=== PATIENT | female | born 1960 | race Caucasian/White ===

== ENCOUNTER → 2016-09-10 | Outpatient (CLI) | payer BC ==
[~2016-09-10] MED LIST: LEVO75TA5 PO
== END | disposition home or self-care (01) ==
LOC: C.LAB1850 12:24
PROVIDERS: ATTEND Nurse Practitioner Adult Health
DX: E03.9 Hypothyroidism, unspecified (principal)

== ENCOUNTER → 2016-12-21 | Outpatient (CLI) | payer BC ==
[2016-12-21 14:46] LABS: ALT/SGPT 22 U/L (12-78); BLOOD UREA NITROGEN 11 mg/dl (7-18); BUN/CREATININE RATIO 16.4 (10-20); CALCIUM 9.3 mg/dl (8.5-10.1); CARBON DIOXIDE 29 mmol/L (21-32); CHLORIDE 105 mmol/L (98-107); CHOLESTEROL 187 mg/dl (0-200); CREATININE 0.66 mg/dl (0.60-1.20); GLUCOSE 82 mg/dl (70-99); HDL CHOLESTEROL 99 mg/dl; LDL CHOLESTEROL CALCULATED 79 mg/dl; POTASSIUM 3.8 mmol/L (3.5-5.1); SODIUM 141 mmol/L (136-145); TRIGLYCERIDES 44 mg/dl (0-150)
[2016-12-21 14:47] LABS: CHOLESTEROL/HDL RATIO 1.9; VERY LOW DENSITY LIPOPROT CALC 9 mg/dl
[2016-12-21 14:54] LABS: ALB/GLOB RATIO 1.2 (0.9-2); ALKALINE PHOSPHATASE 87 U/L (45-117); AST/SGOT 22 U/L (15-37)
--- NOTE | 2016-12-24 12:13 | CODING QUERY NO DIAGNOSIS ---
TREATMENT RENDERED WITHOUT A DIAGNOSIS : 1960 To promote full compliance with coding requirements relating to patient care, physician participation is requested in all cases of mixer driver uncertainty. Please assist us with providing a diagnosis/symptom for the test(s) below: A diagnosis/symptom was not documented on your Order. A valid diagnosis/symptom is required to bill all insurances. Please remember that we are unable to code a diagnosis of rule out, probable, possible, questionable, or suspected. Tests that require a diagnosis: DOS: 12/21/16 * COMPREHENSIVE METABO DIAGNOSIS: * LIPID FAST RFLX LDLD DIAGNOSIS: Provider Signature: Date: Thank you Rita [facility] Information Management Once completed, please kindly fax back to [phone] For questions please call [phone]
== END | disposition home or self-care (01) ==
LOC: C.LAB1850 10:35
PROVIDERS: ATTEND Nurse Practitioner Family
DX: Z13.1 Encounter for screening for diabetes mellitus (principal); Z13.220 Encounter for screening for lipoid disorders

== ENCOUNTER 2018-07-14 17:20 | Inpatient (IN) ==
--- OUTSIDE RECORDS SUMMARY | 2018-07-14 17:23 | External Medical Summary | Continuity of Care Document ---
:1960 Author Name Nam Bhat, Provider Address Unavailable Unavailable , Care Team Providers Name Role Phone Cesar Suarez Unavailable [email or web address] [place] Problems Other screening mammogram (V76.12) (Z12.31) Influenza vaccine needed (V04.81) (Z23) Encounter for screening for lipid disorder (V77.91) (Z13.220 ) Encounter for screening for diabetes mellitus (V77.1) (Z13.1 ) Encounter for screening for malignant neoplasm of colon (V76 .51) (Z12.11) Hypothyroidism (244.9) (E03.9) Former smoker (V15.82) (Z87.891) Encounter for routine gynecological exam ination with Papanicolaou smear of cervix (V72.31) (Z01.419) Allergies and Adverse Reactions No Known Drug Allergies (Allergy) Medications Levothyroxine Sodium 112 MCG Oral Tablet; Take 1 table t daily YE Wynne Start: 07-Mar-2018 Quantity: 90 Refills: 1 Procedures History of no history of surgery Status: Completed Immunizations Influenza On: 15-Jan-2014 14:47 Lot #: [id number], [employer] PA[employer]UR Influenza On: 05-Nov-2014 10:36 Lot #: [id number], [employer]FI PA[employer]UR Fluzone Quadrivalent 0.5 ML Intramuscular Suspension On: Nov-2016 9:55 Lot #: [id number], SANOFI PA[employer]UR Flublok Quadrivalent 0.5 ML Intramuscular Solution Pre filled Syringe On: 28-Dec-2017 8:31 Lot #: [id number], SANOFI PASTEUR Family History Mother Family history of Status: Active Family history of lung cancer (V16.1) (Z80.1) Status: Active Family history of thyroid disease (V18.19) (Z83.49) Status: Active Father Family history of Status: Active Family history of myocardial infarction (V17.3) (Z82.49) Sta tus: Active Sister Family history of Tachycardia (785.0) (R00.0) Status: Active Brother FH: celiac disease (V18.59) (Z83.79) Status: Active Social History - Smoking Status Former smoker Plan of Treatment Planned Observations Planned Goals not documented Results No Known Results Results not documented Encounters Appointment; Vivian Matson M.D. 14-Mar-2018 14:00 Encounter Diagnosis: Problem not documented Appointment; Cesar Wynne CRNP 28-Dec-2017 7:40 Encounter Diagnosis: Problem not documented Appointment; Allen Sloan DO 23-Feb-2017 13:40 Encounter Diagnosis: Problem not documented Appointment; Allen Sloan DO 10-Feb-2017 11:20 Encounter Diagnosis: Problem not documented Appointment; Cesar Wynne CRNP 27-Dec-2016 9:20 Encounter Diagnosis: Problem not documented
[2018-07-14] MEDS ORDERED: fentaNYL citrate 100 MCG/2 ML VIAL IV STA (18:23)
--- NOTE | 2018-07-14 18:31 | Emergency Department Note ---
ED Provider Note CHIEF COMPLAINT: Right leg injury HISTORY OF PRESENTING ILLNESS: This is a 58-year-old female who presents to the emergency department by private vehicle with complaint of fall and right leg injury that occurred today around 5 PM. She states that she was walking the dogs and she tripped, she states that she twisted and fell onto her right side. She is complaining of pain in the right thigh and right hip. She states she is unable to move the leg or walk since the injury. She denies any other injuries. She denies hitting her head or loss consciousness. She does not take any blood thinners. She denies any back pain. She denies any chest pain, shortness of breath, or dizziness. She denies any previous injury to this leg. She rates her pain as constant, worse with moving the leg, aching and occasionally sharp, 5/10. She did not take any medication for her pain. REVIEW OF SYSTEMS: A complete 10 point review of systems was reviewed with the patient with pertinent positives and negatives as per history of present illness. All else were negative. PAST MEDICAL HISTORY: Hypothyroidism SOCIAL HISTORY: Lives at home, denies tobacco use ALLERGIES: No known allergies PHYSICAL EXAM: CONSTITUTIONAL: Pleasant and cooperative. No acute distress, but appears uncomfortable from pain. Well appearing and well nourished. HEENT: Normocephalic, atraumatic. PERRL, EOMI. Pharynx normal. NECK: Supple, full active range of motion without discomfort. No midline tenderness of the cervical spine. RESPIRATORY: Clear to auscultation bilaterally with no wheezing, crackles, rhonchi or stridor. Equal expansion bilaterally. CARDIOVASCULAR: Regular rate and rhythm with no murmurs, rubs or gallops. Normal peripheral perfusion. No edema. GASTROINTESTINAL: Soft, nontender, nondistended. No palpable masses or HSM. Bowel sounds present in all quadrants. No CVA tenderness bilaterally. MUSCULOSKELETAL: The right leg is in a position of slight external rotation, but is not shortened. Tenderness to palpation over the right hip joint, pain with range of motion of the right hip. No instability or tenderness with evaluation of the pelvis. Full range of motion of the right knee and right ankle without any pain. INTEGUMENTARY: No rash or other significant dermatologic conditions noted. NEUROLOGIC: Alert and oriented X 4 with normal affect. Sensation intact light touch in all 4 extremities. Normal speech. ED COURSE AND MEDICAL DECISION MAKING: CC: Patient presenting with complaint of right leg injury DIFFERENTIAL DIAGNOSIS: Includes, but not limited to contusion, hematoma, sprain/strain, pelvis fracture, hip fracture, femur fracture, dislocation, among others. INTERPRETATION OF LABS: No leukocytosis, no anemia, normal platelets, no significant electrolyte abnormalities, normal renal function. Coagulation factors within normal limits. IMAGING: XR hip RT 2-3V w pelvis CLINICAL HISTORY: fall, hip pain COMPARISON: None FINDINGS: Note is made of an acute nondisplaced impacted right femoral neck fracture. No additional fractures are identified on this exam. Sacroiliac joints and symphysis pubis are intact. Mild to moderate osteophytosis of both hips, greater on the right. IMPRESSION: Acute impacted nondisplaced right femoral neck fracture. EKG: Shows normal sinus rhythm with a rate of 70 bpm, normal intervals, no ST or T wave abnormalities, no ectopy by my interpretation. No previous EKG a vailable for comparison. MEDICATION RECONCILIATION: I attest that I have personally reviewed the avel villalobos's current medication list. INITIAL VITAL SIGNS REVIEW: I reviewed the patient's initial vital signs and interpret them as follows: T: Afebrile; BP: Hypertensive; HR: Within normal limit; RR: Within normal limits; Pulse Ox: Within normal limits on room air. Blood pressure screening: The patient was found to have an elevated blood pressure, which was felt to be situational. MDM SUMMARY: Patient was evaluated at bedside, history and physical exam performed. Patient is alert and oriented, in no acute distress, but appears uncomfortable from pain. There is tenderness to palpation over the right hip joint and pain with any attempts to move the right leg. Increased pain with range of motion of the right hip. The leg is in a position of external rotation, but does not appear to be shortened. She is neurovascularly intact. Orders were placed at bedside for IV placement, IV fentanyl for pain, x-rays of the pelvis, right hip, and right femur to evaluate for trauma. Patient discussed with Dr. Rock, who agrees with my assessment, plan, and disposition. Imaging reviewed as above, notable for an acute impacted right femoral neck fracture. I spoke on the phone with Dr. Dyson, orthopedic surgery, who plans to admit the patient for probable surgery tomorrow. Basic labs and EKG were ordered per his request. Patient reassessed multiple times throughout ED stay, she has remained hemodynamically stable and her pain is well controlled with IV fentanyl. The patient was updated on all results and plan for admission , she verbalized understanding and was agreeable to this plan. The patient was stable at time of admission. The chart was completed utilizing [employer] Speech voice recognition software. Grammatical errors, random word insertions, pronoun errors, and incomplete sentences are an occasional consequence of this system due to software limitations, ambient noise, and hardware issues. Any formal questions or concerns about the content, text, or information contained within the body of this dictation should be directly addressed to the nurse practitioner for clarification. Impression & Plan Fracture of femur Past Med/Surg History Medical History Hypothyroidism Family History Mother Lung cancer Father ASCVD (arteriosclerotic cardiovascular disease) Social History Preferred Language: Hong Konger Communication Ability: Effective Beliefs That Will Affect Care: None Current Living Situation: Family Other Information That Helps Us Care for You: No Feels Safe at Home: Yes Safety Concerns: Feels Safe At This Time Smoking Status: Former smoker Hx Alcohol Use: No Hx Substance Use: No Results & Data Vital Signs Vital Signs - 24 hr 07/14/18 17:27 07/14/18 20:15 Temperature 36.7 C Temperature Source Oral Sepsis Recent Fever Within 48 Hours No Sepsis Action Taken by Nursing No Action Required Pulse Rate 67 Pulse Rate [Apical] 70 Pulse Rhythm Regular Pulse Strength Normal Respiratory Rate 20 18 Respiratory Effort / Characteristics Non-Labored Spontaneous Respiratory Depth Normal Respiratory Pattern Regular Blood Pressure 146/84 H Blood Pressure [Left Arm] 146/77 H Blood Pressure Mean 104 Blood Pressure Mean [Left Arm] 100 Blood Pressure Position Sitting Pulse Oximetry 96 96 Oxygen Delivery Method Room Air Room Air Laboratory Data Result diagrams: 07/14/18 18:35 07/14/18 21:03 Lab Results 07/14/18 07/14/18 07/14/18 Range/Units 18:35 18:35 18:35 WBC 8.93 (4.8-10.8) K/uL RBC 4.52 (4.2-5.4) M/uL Hgb 13.9 (12.0-16.0) g/dL Hct 39.8 (37-47) % MCV 88.1 (80-100) fL MCH 30.8 (25-34) pg MCHC 34.9 (32-36) g/dL RDW Std Deviation 39.3 (36.4-46.3) fL RDW Coeff of Joe 12.3 (11.5-14.5) % Plt Count 205 (130-400) K/uL MPV 9.1 (7.4-10.4) fL Immature Gran % (Auto) 0.6 % Neut % (Auto) 80.2 % Lymph % (Auto) 10.9 % [place] % (Auto) 6.4 % Eos % (Auto) 1.2 % Baso % (Auto) 0.7 % Immature Gran # (Auto) 0.05 H (0.00-0.02) K/uL Neut # (Auto) 7.17 H (1.4-6.5) K/uL Lymph # (Auto) 0.97 L (1.2-3.4) K/uL [place] # (Auto) 0.57 (0.11-0.59) K/uL Eos # (Auto) 0.11 (0-0.5) K/uL Baso # (Auto) 0.06 (0-0.2) K/uL PT 11.4 (9.0-12.0) Seconds INR 1.1 (0.9-1.1) APTT 26.8 (21.0-31.0) Seconds PTT Ratio 1.0 Sodium 138 (136-145) mmol/L Potassium (3.5-5.1) mmol/L Chloride 105 (98-107) mmol/L Carbon Dioxide 27 (21-32) mmol/L Anion Gap 6.0 (3-11) BUN 10 (7-18) mg/dl Creatinine 0.79 (0.6-1.2) mg/dl Est Cr Clr Drug Dosing 83.3 ml/min Est GFR ( Amer) 95.6 Est GFR (Non-Af Amer) 82.5 BUN/Creatinine Ratio 12.6 (10-20) Glucose 90 (70-99) mg/dl Calcium 9.3 (8.5-10.1) mg/dl Administered Medications Sodium Chloride (Nss 1000ml) 1,000 mls @ 80 mls/hr IV .[id number] [facility] Stop: 08/13/18 23:14 Last Admin: 07/14/18 23:22 Dose: 80 mls/hr Documented by: [id number] Levothyroxine Sodium (Synthroid) 75 mcg PO DAILYBB [facility] Stop: 08/14/18 06:29 Last Admin: 07/15/18 06:38 Dose: 75 mcg Documented by: [id number] Morphine Sulfate (Morphine Sulfate) 4 mg IV Q2H PRN PRN Reason: SEVERE Pain (Scale 7,8,9,10) Stop: 07/28/18 20:26 Last Admin: 07/15/18 08:21 Dose: 4 mg Documented by: [id number] Admin: 07/15/18 05:56 Dose: 4 mg Documented by: [id number] Admin: 07/14/18 22:19 Dose: 4 mg Documented by: [id number] Oxycodone HCl (Roxicodone Immediate Rel) 5 mg PO Q4H PRN PRN Reason: MODERATE Pain (Scale 4,5,6) Stop: 07/28/18 20:26 Last Admin: 07/14/18 22:50 Dose: 5 mg Documented by: [id number] Senna/Docusate Sodium (Senokot S) 2 tab PO HS [facility] Stop: 08/13/18 20:59 Last Admin: 07/14/18 22:46 Dose: 2 tab Documented by: [id number] Discontinued Medications Fentanyl Citrate (Fentanyl Citrate) 50 mcg IV NOW STA Stop: 07/14/18 18:24 Last Admin: 07/14/18 18:37 Dose: 50 mcg Documented by: [id number] Discharge Plan Visit Data *Final* Discharge Date/Time: 07/14/18 21:17 Chief Complaint: Leg Injury/Pain Stated Complaint: FELL ON RT LEG, STIFF/SORE/HARD TO MOVE ED Provider: Shilo Rock ED Midlevel Provider: Kathrin Moscoso Discharge Problem: Fracture of femur Patient Disposition: Admitted As Inpatient Condition: Good Discharge Instructions Interventions: ED Discharge Assessment Last Done: 07/14/18 21:17 Discharge Problem: Fracture of femur Qualifiers: Encounter type: initial encounter Femur location: neck Fracture type: closed Laterality: right Qualified Code(s): S72.001A - Fracture of unspecified part of neck of right femur, initial encounter for closed fracture
--- NOTE | 2018-07-14 19:20 | XRay Report ---
XR femur RT 2V routine CLINICAL HISTORY: fall, hip pain COMPARISON: None FINDINGS: Note is made of an acute impacted nondisplaced right femoral neck fracture. No additional fractures of the right femur are noted. Alignment of the right knee is anatomic. There is no evidence for a right knee joint effusion. IMPRESSION: Acute impacted nondisplaced right femoral neck fracture. Electronically signed by: Umberto Walters M.D. 07/14/2018 7:19 PM
--- NOTE | 2018-07-14 19:20 | XRay Report ---
XR hip RT 2-3V w pelvis CLINICAL HISTORY: fall, hip pain COMPARISON: None FINDINGS: Note is made of an acute nondisplaced impacted right femoral neck fracture. No additional fractures are identified on this exam. Sacroiliac joints and symphysis pubis are intact. Mild to mode rate osteophytosis of both hips, greater on the right. IMPRESSION: Acute impacted nondisplaced right femoral neck fracture. Electronically signed by: Umberto Walters M.D. 07/14/2018 7:19 PM
[2018-07-14 20:07] LABS: Basophils # (auto) 0.06 K/uL (0-0.2); Basophils % (auto) 0.7 %; Eosinophils # (auto) 0.11 K/uL (0-0.5); Eosinophils % (auto) 1.2 %; Hematocrit (blood only) 39.8 % (37-47); Hemoglobin 13.9 g/dL (12.0-16.0); Immature Granulocytes # (auto) 0.05 K/uL (0.00-0.02); Immature Granulocytes % (auto) 0.6 %; Lymphocytes # (auto) 0.97 K/uL (1.2-3.4); Lymphocytes % (auto) 10.9 %; Mean Corpuscular Hgb Conc 34.9 g/dL (32-36); Mean Corpuscular Volume 88.1 fL (80-100); Mean Platelet Volume 9.1 fL (7.4-10.4); Monocytes # (auto) 0.57 K/uL (0.11-0.59); Monocytes % (auto) 6.4 %; Neutrophils # (auto) 7.17 K/uL (1.4-6.5); Neutrophils % (auto) 80.2 %; Platelet Count 205 K/uL (130-400); RDW Coefficient of Variation 12.3 % (11.5-14.5); RDW Standard Deviation 39.3 fL (36.4-46.3); Red Blood Count 4.52 M/uL (4.2-5.4); White Blood Count 8.93 K/uL (4.8-10.8)
[2018-07-14 20:12] LABS: INR 1.1 (0.9-1.1); Partial Thromboplastin Time 26.8 Seconds (21.0-31.0); Prothrombin Time 11.4 Seconds (9.0-12.0)
[2018-07-14 20:22] LABS: BUN Creatinine Ratio 12.6 (10-20); Calcium 9.3 mg/dl (8.5-10.1); Creatinine Clr Calc Pharmacy 83.3 ml/min; Est GFR (African American) 95.6; Est GFR (Non-African American) 82.5
[2018-07-14] MEDS ORDERED: ONDANSETRON INJ 2 MG/ML 2 ML VIAL IV PRN (20:27)
[2018-07-14] MEDS ORDERED: NALOXONE HCL 0.4 MG/1 ML VIAL/CARP IV PRN (20:27)
[2018-07-14] MEDS ORDERED: MAGNESIUM HYDROXIDE SUSP 30 ML UDC PO PRN (20:27)
[2018-07-14] MEDS ORDERED: BISACODYL 10 MG SUPP PR PRN (20:27)
[2018-07-14] MEDS ORDERED: OXYCODONE HCL IR 5 MG TAB (IMMEDIATE RELEASE) PO PRN (20:27)
--- NOTE | 2018-07-14 20:43 | Communication Note ---
Date of Service: July 14, 2018 Will admit to ortho with HEIDEG as consult for impacted femoral neck fracture. Will silvia plan for surgical treatment in the AM.
[2018-07-14 21:39] LABS: Albumin Level 3.9 gm/dl (3.4-5.0); Calcium 9.3 mg/dl (8.5-10.1); Creatinine Clr Calc Pharmacy 95.4 ml/min; Est GFR (African American) 111.2; Potassium 3.6 mmol/L (3.5-5.1)
[2018-07-14 21:42] LABS: Albumin Globulin Ratio 1.1 (0.9-2); Bilirubin,Total 0.6 mg/dl (0.2-1); Globulin 3.7 gm/dl (2.5-4.0); Total Protein 7.6 gm/dl (6.4-8.2)
[2018-07-14] MEDS: MoRPHine SULFATE 4 MG/ML 1 ML CARP\\VIAL IV PRN (22:19)
[2018-07-14] MEDS: DOCUSATE SODIUM/SENNA 50/8.6MG TAB PO SCH (22:46)
[2018-07-14] MEDS: SODIUM CHLORIDE 0.9% 1000ML 1,000 ML IV SCH (23:22)
[2018-07-15] MEDS: MoRPHine SULFATE 4 MG/ML 1 ML CARP\\VIAL IV PRN ×2 (05:56→08:21)
[2018-07-15] MEDS: LEVOTHYROXINE SODIUM 75 MCG TABLET PO SCH (06:38)
--- NOTE | 2018-07-15 07:37 | History & Physical Report ---
Date of Service July 15, 2018 Assessment & Plan (1) Subcapital fracture of right hip: Patient will require cannulated screw fixation of her right hip fracture. Unless the fracture has shifted in someway which would then require likely total hip arthroplasty. Plan for ORIF today versus anterior AGUSTIN if needed. I have indicated the patient for closed reduction internal fixation of her right hip with percutaneous screws versus anterior total hip replacement. The risk benefits complications alternatives were explained to the patient in detail which include however not limited to infection, blood clots, acute blood loss, injury to surrounding nerves, bone, vessels, soft tissue, chronic pain, arthrofibrosis, avascular necrosis, nonunion, malunion, failure of the implants/prosthesis, hip dislocation, leg length discrepancy, need for repeat surgery, loss of limb and loss of life. Patient wished to proceed with surgical intervention and informed consent was obtained. Antibiotics section 8 property manager the OR History of Present Illness Chief Complaint: Right hip pain Primary Care Provider: Cesar Wynne III, YE Patient is a 58-year-old white female who states that while she was walking her dogs yesterday she was turning to go one direction and the dogs leash was wrapped around her legs causing her to lose her balance. She fell into the g rass onto her right side and had immediate pain in her right hip she had difficulty with ambulating. She denies hitting her head and denies loss of consciousness. She has no history of having any shortness of breath chest pain or lightheadedness prior to or after the fall. She came to the emergency room here at [facility] and was seen by the staff. X-rays were taken and was found that she had an impacted subcapital hip fracture of the right hip. Dr Dyson was notified and had the patient admitted for further orthopedic care. Allergies Allergy/AdvReac Type Severity Reaction Status Date / Time No Known Allergies Allergy Verified 07/14/18 18:35 Home Medications Home Medications Medication Instructions Recorded Confirmed Type LEVOTHYROXINE SODIUM 75 mcg PO DAILY #0 07/11/15 07/14/18 History Past Med/Surg History Medical History Hypothyroidism Surgical History S/P tooth extraction Family History Mother Lung cancer Father ASCVD (arteriosclerotic cardiovascular disease) Social History Preferred Language: Armenian Communication Ability: Effective Beliefs That Will Affect Care: None Current Living Situation: Family Other Information That Helps Us Care for You: No Feels Safe at Home: Yes Safety Concerns: Feels Safe At This Time Smoking Status: Former smoker (Quit 20 years ago) Do You Dip or Chew Tobacco: No Hx Alcohol Use: No Hx Substance Use: No Review of Systems Review of Systems: Patient denies any recent fevers, chills, night sweats. She does state that she has just gotten over an upper respiratory illness in the past. No flu like symptoms. Denies any chest pain, chest pressure, irregular heartbeat, myocardial infarction. Denies any history of hemoptysis, shortness of breath at rest or exertion. Denies any history of asthma, bronchitis, pneumonia, tuberculosis. Denies any recent abdominal pain, unusual nausea, vomiting, diarrhea. No history of melena or hematochezia. No history of gynecological issues in the past. No history of recent urinary tract infection, hematuria,pyuria, renal calculi. Positive history of migraine headaches in the past but lessening over the years. Denies any history of seizure disorder CVA, TIA. Physical Exam Physical Exam: [id number], well-nourished, white female, alert and oriented x3 in no acute distress. Pleasant and cooperative. Skin-warm and dry HEENT-head is normocephalic and atraumatic. Pupils are equal and reactive to light and accommodation, EOMI. There is no scleral icterus or injection seen at this time. Nasal airway is patent. Oral mucosa is pink and moist. Neck-supple without adenopathy. Heart-regular rate and rhythm without murmurs. Lungs-clear to auscultation. Abdomen-soft, flat and nontender. Bowel sounds are present and active in all 4 quadrants. Genitalia/rectal-not performed at this time. Extremities-of the right lower extremity, it is resting on a pillow that has been placed lengthwise under the extremity. No attempts are made to take the hip through range of motion, due to fracture, other than some gentle internal and external rotation which causes her discomfort. There is no overt bruising at the right lateral hip and no swelling. Right knee is nontender on palpation and range of motion is deferred due to hip pain. Right ankle has good range of motion and is nontender. Left lower extremity is unaffected and is nontender at the hip knee and ankle and has good range of motion. Upper extremities are unaffected at this time and she is nontender at the shoulders elbows and wrists. Distal pulses are equal bilaterally of the upper and lower extremities. She denies neck pain on palpation and has good range of motion. She denies thoracic or lumbar pain at this time. She has no gross motor or sensory loss at this time. Neurological-cranial nerves II 12 appear to be intact. Patient able to perform partial straight leg raise however weak her hip flexors. Minimal pain. Constitutional: WD/WN, vitals as above Results & Data Vital Signs (Past 12 Hours) Vital Signs Temp Pulse Pulse Pulse Resp BP BP 07/15/18 07:26 37.1 C 68 18 131/83 07/14/18 21:52 37.3 C 78 18 136/86 07/14/18 21:17 77 18 143/72 H 07/14/18 20:15 70 18 146/77 H Pulse Ox 07/15/18 07:26 94 07/14/18 21:52 98 07/14/18 21:17 100 07/14/18 20:15 96 Diagnostic Findings [place] [phone] XRay Report Patient: ROSLYN RIVERA AAdmit Date: 07/14/18 MR#: [id number]: [address] [place] [address] Acct ID:[id number]: [facility] 1960[facility] [place] [address] Age: 58Location: ED Sex: F Room/Bed: Att Phy: Diagnosis: FELL ON RT LEG, STIFF/SORE/HARD TO MOVE Latrice Phy: Cesar Wynne, III, LORENANPService Date: 07/14/18 Fam Phy: Interpreting Phy: Umberto Walters MD Admit Phy: Ordering Phy: Kathrin Moscoso CRNP cc: ~ XR hip RT 2-3V w pelvis CLINICAL HISTORY: fall, hip pain COMPARISON: None FINDINGS: Note is made of an acute nondisplaced impacted right femoral neck fracture. No additional fractures are identified on this exam. Sacroiliac joints and symphysis pubis are intact. Mild to moderate osteophytosis of both hips, greater on the right. IMPRESSION: Acute impacted nondisplaced right femoral neck fracture.
--- NOTE | 2018-07-15 08:03 | Anesthesiology Consultation ---
Date of Service July 15, 2018 Assessment & Plan Chart Review Chart Review: Acceptable Risk for Surgery and Patient NOT seen in Pre Admission Testing Consults Requested none ASA [id number] Proposed Anesthesia Anesthesia Type: General Risk / Benefits Reviewed With: PT / POA / Parent / Guardian, Accepts Plan and Informed Consent Obtained Additional Comments: Discussed with patient r/b of GA vs SAB. Due to patients nausea, explained to patient that she wont be too sedated for the procedure with the SAB to make sure that she can protect her own airway. All questions and concerns were answered. Pt agreed to minimal sedation with SAB, accepting risks. Consent was signed and witnessed History Surgery Operation Date: 07/15/18 11:00 Proposed Procedures p Open Reduction Internal Fixation Femur - Earl Vitale DO Operation Date: 07/15/18 12:00 Proposed Procedures p Total Hip Arthroplasty Uncemt Anterior - Earl Vitale DO Height/Weight Height: 1.78 m Weight: 68 kg Allergies Allergy/AdvReac Type Severity Reaction Status Date / Time No Known Allergies Allergy Verified 07/14/18 18:35 Medications Home Medications Medication Instructions Recorded Confirmed Last Taken LEVOTHYROXINE SODIUM 75 mcg PO DAILY #0 07/11/15 07/14/18 07/14/18 Active Medications Generic Name Dose Route Start Last Admin Trade Name Freq PRN Reason Stop Dose Admin Sodium Chloride 1,000 mls @ 80 mls/hr 07/14/18 23:15 07/14/18 23:22 Nss 1000ml IV 08/13/18 23:14 80 mls/hr .[id number] CARMEN Administration Levothyroxine Sodium 75 mcg 07/15/18 06:30 07/15/18 06:38 Synthroid PO 08/14/18 06:29 75 mcg DAILYBB CARMEN Administration Morphine Sulfate 4 mg 07/14/18 20:27 07/15/18 08:21 Morphine Sulfate IV 07/28/18 20:26 4 mg Q2H PRN Administration SEVERE Pain (Scale 7,8,9,10) Oxycodone HCl 5 mg 07/14/18 20:27 07/14/18 22:50 Roxicodone Immediate Rel PO 07/28/18 20:26 5 mg Q4H PRN Administration MODERATE Pain (Scale 4,5,6) Senna/Docusate Sodium 2 tab 07/14/18 21:00 07/14/18 22:46 Senokot S PO 08/13/18 20:59 2 tab HS CARMEN Administration NPO Date Last Intake of Fluids: 07/14/18 Time Last Intake of Fluids: 23:00 Last Intake of Fluids Comment: Sip of water with medicine Date Last Intake of Solids: 07/14/18 Time Last Intake of Solids: 09:00 Past Medical History Medical History Hypothyroidism Denies any h/o major bleeding disorder or taking any anticoagulant Exercise / Class Metabolic Activity II 4-5 Yardwork/Stairs/Walk up hill Past Family History Family History Mother Lung cancer Father ASCVD (arteriosclerotic cardiovascular disease) Past Surgical History Surgical History S/P tooth extraction Past Anesthesia History No Hx of Anesthesia Complications and No Family Hx of Anesthesia Complications History of PONV No Hx of PONV and No Hx of Motion Sickness Social History Smoking Status: Former smoker (Quit 20 years ago) Do You Dip or Chew Tobacco: No Hx Alcohol Use: No Hx Substance Use: No Review of Systems Respiratory: no dyspnea Cardiovascular: no chest pain Gastrointestinal: + nausea; no heartburn and no vomiting Physical Exam Vital Signs Last Vital Signs Temp 37.1 C 07/15/18 07:26 Pulse 68 07/15/18 07:26 Resp 18 07/15/18 07:26 BP 131/83 07/15/18 07:26 Pulse Ox 94 07/15/18 07:26 ENMT Mouth: + edentulous Thyromental Distance: > or= 3.5 Finger Breadths Mallampati Class: II Neck normal visual inspection and trachea midline; neck extension not limited Respiratory Auscultation: lungs clear to auscultation bilaterally Cardiovascular Rate/Rhythm: regular rate and regular rhythm Psychiatric Orientation: alert and oriented x 3 Testing Laboratory Results 07/14/18 18:35 07/14/18 21:03 07/14/18 07/14/18 18:35 21:03 PT 11.4 INR 1.1 APTT 26.8 Blood Type A Positive Antibody Screen NEGATIVE Electrocardiogram Date: 07/14/18 Findings: + NSR @ (70 bpm) Normal sinus rhythm Possible Left atrial enlargement Low voltage QRS Cannot rule out Anterior infarct , age undetermined Abnormal ECG No previous ECGs available
[2018-07-15] MEDS ORDERED: BUPIVACAINE 0.5 % 5 MG/1 ML PF 10ML VIAL ONE (09:11)
[2018-07-15] MEDS ORDERED: fentaNYL citrate 100 MCG/2 ML VIAL IV PRN (09:35)
[2018-07-15] MEDS ORDERED: HYDROmorphone INJ 1 MG/ML SYRINGE IV PRN (09:35)
[2018-07-15] MEDS ORDERED: PROMETHAZINE HCL 12.5 MG in SODIUM CHLORIDE 0.9% 50 ML IV PRN (09:35)
[2018-07-15] MEDS ORDERED: PHENYLEPHRINE 100MCG/ML 5ML SYR IV PRN (09:35)
[2018-07-15] MEDS ORDERED: ePHEDrine sulfate 50 MG/ML AMP IV PRN (09:35)
[2018-07-15] MEDS ORDERED: ATROPINE SULFATE 0.1 MG/ML 10ML SYR IV PRN (09:35)
[2018-07-15] MEDS ORDERED: ONDANSETRON INJ 2 MG/ML 2 ML VIAL IV PRN ×2 (09:35→14:05)
[2018-07-15] MEDS ORDERED: LIDOCAINE HCL 2% 2 ML VIAL/AMP(20MG/ML) INFIL ONE (10:15)
[2018-07-15] MEDS ORDERED: MIDAZOLAM HCL 1 MG/ML 2ML VIAL ONE ×2 (10:15)
[2018-07-15] MEDS ORDERED: fentaNYL citrate 100 MCG/2 ML VIAL ONE (10:15)
[2018-07-15] MEDS ORDERED: PROPOFOL IV EMULSION 10 MG/ML 20 ML VIAL IV ONE (10:15)
--- NOTE | 2018-07-15 11:15 | History & Physical Bridge Note ---
Date of Service July 15, 2018 History & Physical Bridge Note I have examined the patient, reviewed the History & Physical and in the interval since the performance of the History & Physical I have noted the following changes of clinical significance: no changes noted
--- NOTE | 2018-07-15 11:17 | Orthopedic Progress Note ---
Date of Service July 15, 2018 Assessment & Plan (1) Subcapital fracture of right hip: I have indicated the patient for closed reduction internal fixation of her right hip with percutaneous screws versus anterior total hip replacement. The risk benefits complications alternatives were explained to the patient in detail which include however not limited to infection, blood clots, acute blood loss, injury to surrounding nerves, bone, vessels, soft tissue, chronic pain, arthrofibrosis, avascular necrosis, nonunion, malunion, failure of the implants/prosthesis, hip dislocation, leg length discrepancy, need for repeat surgery, loss of limb and loss of life. Patient wished to proceed with surgical intervention and informed consent was obtained. Antibiotics contamination consultant the OR Nonweightbearing right lower extremity Bedrest Subjective Patient seen in preoperative holding, comfortable, pain well controlled, no acute issues. Review of Systems Review of Systems: All systems reviewed & are unremarkable except as noted in HPI & below Constitutional: as per Subjective / HPI Physical Exam Physical Exam: Right lower extremity neurovascular sensory intact, +2 dorsalis pedis pulse, compartment soft nontender, intact however weak straight leg raise, minimal pain with gentle range of motion. Constitutional: WD/WN, vitals as above Results & Data Vital Signs (Past 12 Hours) Vital Signs Temp Pulse Resp BP Pulse Ox 07/15/18 07:26 37.1 C 68 18 131/83 94
[2018-07-15] MEDS ORDERED: HYDROmorphone INJ 2 MG/ML SYR/VIAL ONE (12:08)
--- NOTE | 2018-07-15 12:20 | Consultation ---
Date of Consultation July 15, 2018 Assessment & Plan (1) Subcapital fracture of right hip: s/p mechanical fall As per ortho, planning for OR 07/15 Pre-op Hb 13.5 Pt is quite healthy overall. Appears acceptable risk for OR. (2) Hypothyroid: stable, continue home meds (3) DVT prophylaxis: As per ortho History of Present Illness Attending Physician: Edy Dyson MD History of Present Illness 58 y/o F who was admitted on 07/[address] Vitale s/p mechanical fall and L hip fracture. Pt states she was walking her two dogs, one of whom is a larger dog when they pulled and she lost her balance. Pt is currently awaiting OR. She states she feels a bit "out of it" with the pain medication, but otherwise feels fine. Her LE pain is tolerable as long as she is not moving. Pt denies fever, SOB, chest pain, abd pain, n/v/c/d, LE swelling. Allergies Allergy/AdvReac Type Severity Reaction Status Date / Time No Known Allergies Allergy Verified 07/14/18 18:35 Home Medications Home Medications Medication Instructions Recorded Confirmed Type LEVOTHYROXINE SODIUM 75 mcg PO DAILY #0 07/11/15 07/14/18 History Patient History Medical History Hypothyroidism Surgical History S/P tooth extraction Family History Mother Lung cancer Father ASCVD (arteriosclerotic cardiovascular disease) Social History Preferred Language: Palestinian Communication Ability: Effective Beliefs That Will Affect Care: None Current Living Situation: Family Other Information That Helps Us Care for You: No Feels Safe at Home: Yes Safety Concerns: Feels Safe At This Time Smoking Status: Former smoker (Quit 20 years ago) Do You Dip or Chew Tobacco: No Hx Alcohol Use: No Hx Substance Use: No Review of Systems Review of Systems: Pertinent positives and negatives reviewed in HPI--all others negative Physical Exam Constitutional: WD/WN, vitals as above Eyes: normal visual saenz by confrontation and + anicteric sclerae Neck: normal visual inspection and trachea midline Respiratory: normal respiratory effort, lungs clear to auscultation Cardiovascular: Rate/Rhythm: regular rate and regular rhythm Gastrointestinal (Abdomen): Inspection/Auscultation: abdomen not distended Percussion/Palpation: abdomen soft; abdomen nontender Musculoskeletal: Head/Neck/Chest: normocephalic and head atraumatic negative for edema, peripheral pulses intact Skin: no rashes, warm and dry Neurologic: awake; not confused Speech / Cognition: normal speech Psychiatric: A+Ox3, euthymic affect Results & Data Vital Signs (Past 12 Hours) Vital Signs Temp Pulse Resp BP Pulse Ox 07/15/18 07:26 37.1 C 68 18 131/83 94 Diagnostic Findings LE imaging noted
[2018-07-15] MEDS ORDERED: BUPIVACAINE/EPINEPHRINE 0.5% MPF 1:200,000 30 ML VIAL ONE (12:26)
[2018-07-15] MEDS ORDERED: GLYCOPYRROLATE 0.2 MG/ML VIAL ONE (12:31)
[2018-07-15] MEDS ORDERED: NEOSTIGMINE METHYLSULFATE 5 MG/5 ML SYR ONE (12:31)
[2018-07-15] MEDS ORDERED: ONDANSETRON INJ 2 MG/ML 2 ML VIAL ONE (12:32)
[2018-07-15] MEDS ORDERED: DEXAMETHASONE SOD INJ 4 MG/ML VIAL ONE (12:32)
--- NOTE | 2018-07-15 12:37 | Post Operative Brief Note ---
Immediate Post Op Note v1 Date of Surgery July 15, 2018 Pre & Post Diagnosis Operation Date: 07/15/18 11:00 Pre-Op Diagnosis: Acute Impacted Nondisplaced Right femoral Neck Fracture Post-Op Diagnosis: Acute Impacted Nondisplaced Right femoral Neck Fracture Operation Date: 07/15/18 12:00 <No data on this case meets the specified criteria> Procedure Operation Date: 07/15/18 11:00 Actual Procedures p Percutaneous Pinning Right Femur Fracture(Right) - Earl Vitale DO Operation Date: 07/15/18 12:00 <No data on this case meets the specified criteria> Surgeon Earl Vitale DO Pants Closer none Estimated Blood Loss 10 Findings Consistent with Post-Op Diagnosis Fluids 1000 cc LR Specimens none Anesthesia Type General Complications none Disposition Disposition: Recovery Room Overlapping Procedure I was present for: the critical portions of procedure. I was immediately available: during the entire case. Back up surgeon: was not required during procedure.
--- NOTE | 2018-07-15 12:48 | Fluoroscopy Report ---
FL hip RT 2-3V CLINICAL HISTORY: RT HIP FX COMPARISON STUDY: Right hip 07/14/2018. FLUOROSCOPY TIME: 2 minutes and 47 seconds. FINDINGS: 2 fluoroscopic spot images demonstrate 3 cannulated screws within the right femoral neck fi tremayne the femoral neck fracture. The hardware appears intact. Alignment appears anatomic. IMPRESSION: Fluoroscopy provided for internal fixation of a right femoral neck fracture. Electronically signed by: Marquise Short M.D. 07/15/2018 12:47 PM
--- NOTE | 2018-07-15 12:51 | Operative Report ---
Post Operative Report Pre & Post Diagnosis Operation Date: 07/15/18 11:00 Pre-Op Diagnosis: Acute Impacted Nondisplaced Right femoral Neck Fracture Post-Op Diagnosis: Acute Impacted Nondisplaced Right femoral Neck Fracture Operation Date: 07/15/18 12:00 <No data on this case meets the specified criteria> Procedure Operation Date: 07/15/18 11:00 Actual Procedures p Percutaneous Pinning Right Femur Fracture(Right) - Earl Vitale DO Operation Date: 07/15/18 12:00 <No data on this case meets the specified criteria> Surgeon Earl Vitale DO Disability Hearing Officer none Estimated Blood Loss 10 Findings Consistent with Post-Op Diagnosis Specimens None Anesthesia Type General Complications none Indications The patient is a 50-year-old for with nondisplaced right femoral neck fracture sustained after a fall from standing height due to tripping over dog. The patient was stable for surgery on 07/15/2018. I indicated the patient for closed reduction internal fixation with percutaneous pinning right hip versus anterior total hip arthroplasty. The patient was informed of the risks and benefits of surgery, which include but not limited to infection, bleeding, blood clots, damage to nerves, vessels, bone and soft tissue, dislocation, leg length di screpancy, chronic pain, arthrofibrosis, malunion, nonunion, avascular necrosis, need for additional surgery and . The patient collectively chose to move forward with surgical intervention and informed consent was obtained. Description of Procedure The patient was identified, brought to the operating room, and placed in supine position on the table. After induction of general anesthesia, the patient was positioned on a fracture table. Imaging was obtained utilizing C-arm fluoroscopy of the right hip to assess hip position and version. No reduction was needed and we decided to proceed with internal fixation with percutaneous hip pinning. The right hip was then sterilely prepped and draped in the usual fashion for the surgery. A timeout was performed with site guy confirmation and preoperative antibiotics given. Once again under C-arm fluoroscopy a guide pin was inserted percutaneously and positioned in the inferior neck and femoral head while assessed in both the AP and lateral planes. When satisfactory position was confirmed a small direct lateral incision of the right hip around the guide pin was made. Dissection was carried down to the femur through the IT band and the vastus lateralis was elevated off the bone. Adequate hemostasis was achieved with electrocautery. Next under direct visualization with C-arm fluoroscopy we then used the pin guide to place two additional pins in the anterior superior and posterior superior positions. Position was confirmed both with C-arm fluroscopy in the AP and lateral postion. Each guide pin was measured for appropriate screw length and overdrilled using the cannulated drill bit while utilizing C-arm fluoroscopy to confirm no pin migration had occurred. Two 7.3 16 thread cannulated screws measure 90, 90 and one 7.3 32 thread cannulated screw measuring 95 mm was then placed under C-arm fluoroscopy into the femoral head with excellent fixation. The guide pins were removed at this time and final images were obtained utilizing C-arm fluoroscopy. Once this was done and the fixation was solid, the wound was irrigated with copious amounts of sterile saline solution. We then closed in layers using 1 Vicryl, 2-0 Vicryl, and ace for the skin. 12 cc of half percent Marcaine with epi was injected into the subcutaneous tissues. Sterile xeroform, 4x4, tegaderm dressing was applied. The patient was extubated in the OR , tolerated the procedure well and was taken to the PACU in stable condition. I attest to the content of the Intraoperative Record and any orders documented therein. Any exceptions are noted below.
--- NOTE | 2018-07-15 13:33 | Orthopedic Progress Note ---
Date of Service July 15, 2018 Assessment & Plan (1) Subcapital fracture of right hip: Status post internal fixation right hip with percutaneous pinning -Ancef x24 -DVT prophylaxis: SCDs, teds, Lovenox daily x4 weeks -Toe-touch weightbearing right lower extremity -PT/OT -A.m. labs -Postoperative x-ray demonstrates a well aligned well fixed internal implants without new fracture or dislocation -DC planning Subjective Post Operative Progress Note Patient seen in PACU, comfortable, denies complaints, pain well controlled, no acute issues. Review of Systems Review of Systems: All systems reviewed & are unremarkable except as noted in HPI & below Constitutional: as per Subjective / HPI Physical Exam Physical Exam: RLE NVSI +EHL/FHL/TA/GS SILT grossly, +2 DP pulse, compartments soft NT, dressing cdi. Constitutional: WD/WN, vitals as above Results & Data Vital Signs (Past 12 Hours) Vital Signs Temp Pulse Pulse Resp BP Pulse Ox 07/15/18 13:30 36.7 C 62 14 112/74 97 07/15/18 13:20 73 18 115/72 98 07/15/18 13:10 56 L 12 112/72 99 07/15/18 13:00 57 L 14 107/67 98 07/15/18 12:52 36.4 C L 68 18 114/66 99 07/15/18 07:26 37.1 C 68 18 131/83 94
[2018-07-15] MEDS ORDERED: CEFAZOLIN 250 MG/ML 1 GM VIAL ONE (13:48)
[2018-07-15] MEDS ORDERED: COUGH DROP (SUGAR FREE) LOZ 24 LOZ/1 BOX BUCCAL PRN (14:05)
[2018-07-15] MEDS ORDERED: MAGNESIUM HYDROXIDE SUSP 30 ML UDC PO PRN (14:05)
[2018-07-15] MEDS ORDERED: NALOXONE HCL 0.4 MG/1 ML VIAL/CARP IV PRN (14:05)
[2018-07-15] MEDS ORDERED: HYDROmorphone INJ 0.5 MG/0.5 ML SYR IV PRN (14:05)
[2018-07-15] MEDS ORDERED: OXYCODONE HCL IR 5 MG TAB (IMMEDIATE RELEASE) PO PRN (14:05)
--- NOTE | 2018-07-15 14:12 | Anesthesiology Progress Note ---
Date of Service July 15, 2018 Anesthesia Post Procedure Vital Signs Vital Signs: Temp Pulse Pulse Pulse Resp BP BP 07/15/18 13:40 57 L 14 115/74 07/15/18 13:30 36.7 C 62 14 112/74 07/15/18 13:20 73 18 115/72 07/15/18 13:10 56 L 12 112/72 07/15/18 13:00 57 L 14 107/67 07/15/18 12:52 36.4 C L 68 18 114/66 07/15/18 07:26 37.1 C 68 18 131/83 07/14/18 21:52 37.3 C 78 18 136/86 07/14/18 21:17 77 18 143/72 H 07/14/18 20:15 70 18 146/77 H 07/14/18 17:27 36.7 C 67 20 146/84 H Pulse Ox 07/15/18 13:40 97 07/15/18 13:30 97 07/15/18 13:20 98 07/15/18 13:10 99 07/15/18 13:00 98 07/15/18 12:52 99 07/15/18 07:26 94 07/14/18 21:52 98 07/14/18 21:17 100 07/14/18 20:15 96 07/14/18 17:27 96 Pain Intensity Right Leg: Pain Intensity: 10 Transfer of Care Handoff Completed per policy Notes Mental Status: alert / awake / arousable Patient Amnestic to Procedure: Yes Nausea / Vomiting: adequately controlled Pain: adequately controlled Airway Patency, RR, SpO2: stable & adequate BP & HR: stable & adequate Hydration State: stable & adequate Anesthetic Complications: no major complications apparent
--- NOTE | 2018-07-15 14:19 | XRay Report ---
XR hip RT min 2V CLINICAL HISTORY: Post-Operative implant position COMPARISON STUDY: Right hip 07/14/2018. FINDINGS: Status post internal fixation of a right femoral neck fracture with 3 cannulated screws are the hardware appears intact. Skin ace are in place. No dislocation. IMPRESSION: Status post internal fixation of a right femoral neck fracture. No evidence for hardware complication. Electronically signed by: Marquise Short M.D. 07/15/2018 2:18 PM
[2018-07-15] MEDS: SODIUM CHLORIDE 0.9% 1000ML 1,000 ML IV SCH ×2 (14:47→14:50)
[2018-07-15] MEDS: CEFAZOLIN 1000MG 1,000 MG/7.5 ML SYR IV SCH (21:04)
[2018-07-15] MEDS: DOCUSATE SODIUM/SENNA 50/8.6MG TAB PO SCH (21:04)
[2018-07-16] MEDS: SODIUM CHLORIDE 0.9% 1000ML 1,000 ML IV SCH (02:21)
[2018-07-16] MEDS: ACETAMINOPHEN 325 MG TAB PO PRN (02:23)
[2018-07-16] MEDS: LEVOTHYROXINE SODIUM 75 MCG TABLET PO SCH (05:36)
[2018-07-16] MEDS: CEFAZOLIN 1000MG 1,000 MG/7.5 ML SYR IV SCH (05:36)
[2018-07-16 05:41] LABS: Basophils # (auto) 0.01 K/uL (0-0.2); Basophils % (auto) 0.1 %; Eosinophils # (auto) 0.01 K/uL (0-0.5); Eosinophils % (auto) 0.1 %; Hematocrit (blood only) 33.5 % (37-47); Hemoglobin 11.9 g/dL (12.0-16.0); Immature Granulocytes # (auto) 0.02 K/uL (0.00-0.02); Immature Granulocytes % (auto) 0.3 %; Lymphocytes % (auto) 11.4 %; Mean Corpuscular Hgb Conc 35.5 g/dL (32-36); Mean Corpuscular Volume 86.3 fL (80-100); Mean Platelet Volume 8.7 fL (7.4-10.4); Monocytes # (auto) 0.58 K/uL (0.11-0.59); Monocytes % (auto) 8.3 %; Neutrophils # (auto) 5.61 K/uL (1.4-6.5); Neutrophils % (auto) 79.8 %; Platelet Count 127 K/uL (130-400); RDW Coefficient of Variation 12.2 % (11.5-14.5); RDW Standard Deviation 38.3 fL (36.4-46.3); Red Blood Count 3.88 M/uL (4.2-5.4); White Blood Count 7.03 K/uL (4.8-10.8)
[2018-07-16 06:11] LABS: Calcium 8.3 mg/dl (8.5-10.1); Creatinine Clr Calc Pharmacy 119.7 ml/min; Est GFR (African American) 119.8; Est GFR (Non-African American) 103.4; Potassium 3.8 mmol/L (3.5-5.1)
[2018-07-16] MEDS: ENOXAPARIN INJ 40 MG/0.4 ML SYR SQ SCH (09:02)
--- NOTE | 2018-07-16 10:43 | Orthopedic Progress Note ---
Date of Service July 16, 2018 Assessment & Plan (1) Subcapital fracture of right hip: POD 1 Status post internal fixation right hip with percutaneous pinning -Ancef x24, then dc -DVT prophylaxis: SCDs, teds, Lovenox daily x4 weeks -Toe-touch weightbearing right lower extremity -PT/OT -A.m. labs as above -DC planning - currently planning for services. Subjective POD 1 s/p Right ORIF Subcaptial Hip Fx Pt sitting up in chair at bedside. No complaints. Hip feeling better since surgery. No complaints at present time. Denies SOB,CP,LH. Physical Exam Physical Exam: Dressings C/D/I. Thigh soft. Calves soft, NT. NV intact. Toes mobile Results & Data Vital Signs (Past 12 Hours) Vital Signs Temp Pulse Resp BP Pulse Ox 07/16/18 07:06 36.5 C 64 18 118/74 94 07/16/18 03:54 37.1 C 69 14 122/74 95 07/15/18 22:57 36.7 C 73 20 120/82 96 Laboratory Results Laboratory Results WBC 7.03 K/uL (4.8-10.8) 07/16/18 05:26 RBC 3.88 M/uL (4.2-5.4) L 07/16/18 05:26 Hgb 11.9 g/dL (12.0-16.0) L 07/16/18 05:26 Hct 33.5 % (37-47) L 07/16/18 05:26 MCV 86.3 fL (80-100) 07/16/18 05:26 MCH 30.7 pg (25-34) 07/16/18 05:26 MCHC 35.5 g/dL (32-36) 07/16/18 05:26 RDW Std Deviation 38.3 fL (36.4-46.3) 07/16/18 05:26 RDW Coeff of Joe 12.2 % (11.5-14.5) 07/16/18 05:26 Plt Count 127 K/uL (130-400) L 07/16/18 05:26 MPV 8.7 fL (7.4-10.4) 07/16/18 05:26 Immature Gran % (Auto) 0.3 % 07/16/18 05:26 Neut % (Auto) 79.8 % 07/16/18 05:26 Lymph % (Auto) 11.4 % 07/16/18 05:26 [place] % (Auto) 8.3 % 07/16/18 05:26 Eos % (Auto) 0.1 % 07/16/18 05:26 Baso % (Auto) 0.1 % 07/16/18 05:26 Immature Gran # (Auto) 0.02 K/uL (0.00-0.02) 07/16/18 05:26 Neut # (Auto) 5.61 K/uL (1.4-6.5) 07/16/18 05:26 Lymph # (Auto) 0.80 K/uL (1.2-3.4) L 07/16/18 05:26 [place] # (Auto) 0.58 K/uL (0.11-0.59) 07/16/18 05:26 Eos # (Auto) 0.01 K/uL (0-0.5) 07/16/18 05:26 Baso # (Auto) 0.01 K/uL (0-0.2) 07/16/18 05:26 PT 11.4 Seconds (9.0-12.0) 07/14/18 18:35 INR 1.1 (0.9-1.1) 07/14/18 18:35 APTT 26.8 Seconds (21.0-31.0) 07/14/18 18:35 PTT Ratio 1.0 07/14/18 18:35 Sodium 139 mmol/L (136-145) 07/16/18 05:26 Potassium 3.8 mmol/L (3.5-5.1) 07/16/18 05:26 Chloride 108 mmol/L (98-107) H 07/16/18 05:26 Carbon Dioxide 28 mmol/L (21-32) 07/16/18 05:26 3.0 (3-11) 07/16/18 05:26 BUN 9 mg/dl (7-18) 07/16/18 05:26 0.55 mg/dl (0.6-1.2) L 07/16/18 05:26 Est Cr Clr Drug Dosing 119.7 ml/min 07/16/18 05:26 Est GFR ( Amer) 119.8 07/16/18 05:26 Est GFR (Non-Af Amer) 103.4 07/16/18 05:26 16.0 (10-20) 07/16/18 05:26 Glucose 98 mg/dl (70-99) 07/16/18 05:26 Calcium 8.3 mg/dl (8.5-10.1) L 07/16/18 05:26 0.6 mg/dl (0.2-1) 07/14/18 21:03 AST 23 U/L (15-37) 07/14/18 21:03 ALT 22 U/L (12-78) 07/14/18 21:03 85 U/L (45-117) 07/14/18 21:03 7.6 gm/dl (6.4-8.2) 07/14/18 21:03 3.9 gm/dl (3.4-5.0) 07/14/18 21:03 3.7 gm/dl (2.5-4.0) 07/14/18 21:03 1.1 (0.9-2) 07/14/18 21:03 25-OH Vitamin D Total 32.9 ng/ml (30-100) 07/14/18 21:03 Negative (Negative) 07/14/18 23:29 Hepatitis C Ab Screen Neg (Neg) 07/14/18 21:03 Blood Type A Positive 07/14/18 21:03 Antibody Screen NEGATIVE 07/14/18 21:03
--- NOTE | 2018-07-16 17:03 | Hospitalist Progress Note ---
Date of Service July 16, 2018 Assessment & Plan (1) Subcapital fracture of right hip: s/p mechanical fall As per ortho, planning for OR 07/15 Pre-op Hb 13.5 (2) Hypothyroid: stable, continue home meds (3) DVT prophylaxis: As per ortho Subjective Pt is doing well post-op. Tolerating PO without issue. Pt denies fever, SOB, chest pain, abd pain, n/v/c/d, LE swelling. Review of Systems Review of Systems: Pertinent positives and negatives reviewed in HPI--all ot hers negative Physical Exam Constitutional: WD/WN, vitals as above Eyes: normal visual saenz by confrontation and + anicteric sclerae Neck: normal visual inspection and trachea midline Respiratory: normal respiratory effort, lungs clear to auscultation Cardiovascular: Rate/Rhythm: regular rate and regular rhythm Gastrointestinal (Abdomen): Inspection/Auscultation: abdomen not distended Percussion/Palpation: abdomen soft; abdomen nontender Musculoskeletal: Head/Neck/Chest: normocephalic and head atraumatic Skin: no rashes, warm and dry Neurologic: awake; not confused Speech / Cognition: normal speech Psychiatric: A+Ox3, euthymic affect Results & Data Vital Signs (Past 12 Hours) Vital Signs Temp Pulse Resp BP BP Pulse Ox 07/16/18 15:32 36.9 C 70 16 117/75 97 07/16/18 07:06 36.5 C 64 18 118/74 94
[2018-07-16] MEDS: DOCUSATE SODIUM/SENNA 50/8.6MG TAB PO SCH (20:47)
[2018-07-17] MEDS: ACETAMINOPHEN 325 MG TAB PO PRN (02:06)
[2018-07-17] MEDS: LEVOTHYROXINE SODIUM 75 MCG TABLET PO SCH (05:57)
[2018-07-17 06:56] LABS: Basophils # (auto) 0.02 K/uL (0-0.2); Basophils % (auto) 0.3 %; Eosinophils # (auto) 0.14 K/uL (0-0.5); Hematocrit (blood only) 37.8 % (37-47); Hemoglobin 13.1 g/dL (12.0-16.0); Immature Granulocytes # (auto) 0.02 K/uL (0.00-0.02); Immature Granulocytes % (auto) 0.3 %; Lymphocytes # (auto) 1.46 K/uL (1.2-3.4); Lymphocytes % (auto) 20.9 %; Mean Corpuscular Hgb Conc 34.7 g/dL (32-36); Mean Corpuscular Volume 87.9 fL (80-100); Mean Platelet Volume 8.9 fL (7.4-10.4); Monocytes # (auto) 0.53 K/uL (0.11-0.59); Monocytes % (auto) 7.6 %; Neutrophils # (auto) 4.82 K/uL (1.4-6.5); Neutrophils % (auto) 68.9 %; Platelet Count 148 K/uL (130-400); RDW Coefficient of Variation 12.3 % (11.5-14.5); RDW Standard Deviation 39.4 fL (36.4-46.3); White Blood Count 6.99 K/uL (4.8-10.8)
[2018-07-17 07:25] LABS: BUN Creatinine Ratio 12.8 (10-20); Calcium 9.2 mg/dl (8.5-10.1); Creatinine Clr Calc Pharmacy 99.7 ml/min; Est GFR (African American) 112.9; Est GFR (Non-African American) 97.4; Potassium 4.1 mmol/L (3.5-5.1)
[2018-07-17] MEDS: ENOXAPARIN INJ 40 MG/0.4 ML SYR SQ SCH (07:48)
--- NOTE | 2018-07-17 08:39 | Orthopedic Progress Note ---
Date of Service July 17, 2018 Assessment & Plan (1) Subcapital fracture of right hip: POD 2 Status post internal fixation right hip with percutaneous pinning -Ancef x24, then dc -DVT prophylaxis: SCDs, teds, Lovenox daily x4 weeks -Toe-touch weightbearing right lower extremity -PT/OT -A.m. labs as above -DC planning - currently planning for HH services [facility]. Patient seen and examined, agree with above assessment and plan. Subjective Postop day 2 status post ORIF right hip fracture. Patient is lying in bed awake and alert without complaints. She states she continues to feel better each day. Pain is controlled. She denies shortness of breath, chest pain, lightheadedness. He is doing in PT today to see what her decision will be for rehab facility versus home health services. Review of Systems Review of Systems: All systems reviewed & are unremarkable except as noted in HPI & below Constitutional: as per Subjective / HPI Physical Exam Physical Exam: Dressing is clean, dry, intact. She has some mild bruising around the incision itself. No erythema. Thigh is soft. Calves are soft nontender. Neurovascular is intact. Toes are mobile. RLE NVSI +EHL/FHL/TA/GS SILT grossly, +2 DP pulse, compartments soft NT, dressing cdi. Constitutional: WD/WN, vitals as above Results & Data Vital Signs (Past 12 Hours) Vital Signs Temp Pulse Resp BP Pulse Ox 07/17/18 06:24 36.9 C 60 16 114/75 94 07/16/18 23:17 37.2 C 70 14 113/70 93 Laboratory Results Laboratory Results WBC 6.99 K/uL (4.8-10.8) 07/17/18 06:43 RBC 4.30 M/uL (4.2-5.4) 07/17/18 06:43 Hgb 13.1 g/dL (12.0-16.0) 07/17/18 06:43 Hct 37.8 % (37-47) 07/17/18 06:43 MCV 87.9 fL (80-100) 07/17/18 06:43 MCH 30.5 pg (25-34) 07/17/18 06:43 MCHC 34.7 g/dL (32-36) 07/17/18 06:43 RDW Std Deviation 39.4 fL (36.4-46.3) 07/17/18 06:43 RDW Coeff of Joe 12.3 % (11.5-14.5) 07/17/18 06:43 Plt Count 148 K/uL (130-400) 07/17/18 06:43 MPV 8.9 fL (7.4-10.4) 07/17/18 06:43 Immature Gran % (Auto) 0.3 % 07/17/18 06:43 Neut % (Auto) 68.9 % 07/17/18 06:43 Lymph % (Auto) 20.9 % 07/17/18 06:43 [place] % (Auto) 7.6 % 07/17/18 06:43 Eos % (Auto) 2.0 % 07/17/18 06:43 Baso % (Auto) 0.3 % 07/17/18 06:43 Immature Gran # (Auto) 0.02 K/uL (0.00-0.02) 07/17/18 06:43 Neut # (Auto) 4.82 K/uL (1.4-6.5) 07/17/18 06:43 Lymph # (Auto) 1.46 K/uL (1.2-3.4) 07/17/18 06:43 [place] # (Auto) 0.53 K/uL (0.11-0.59) 07/17/18 06:43 Eos # (Auto) 0.14 K/uL (0-0.5) 07/17/18 06:43 Baso # (Auto) 0.02 K/uL (0-0.2) 07/17/18 06:43 PT 11.4 Seconds (9.0-12.0) 07/14/18 18:35 INR 1.1 (0.9-1.1) 07/14/18 18:35 APTT 26.8 Seconds (21.0-31.0) 07/14/18 18:35 PTT Ratio 1.0 07/14/18 18:35 Sodium 139 mmol/L (136-145) 07/17/18 06:43 Potassium 4.1 mmol/L (3.5-5.1) 07/17/18 06:43 Chloride 106 mmol/L (98-107) 07/17/18 06:43 Carbon Dioxide 25 mmol/L (21-32) 07/17/18 06:43 7.0 (3-11) 07/17/18 06:43 BUN 8 mg/dl (7-18) 07/17/18 06:43 0.66 mg/dl (0.6-1.2) 07/17/18 06:43 Est Cr Clr Drug Dosing 99.7 ml/min 07/17/18 06:43 Est GFR ( Amer) 112.9 07/17/18 06:43 Est GFR (Non-Af Amer) 97.4 07/17/18 06:43 12.8 (10-20) 07/17/18 06:43 Glucose 95 mg/dl (70-99) 07/17/18 06:43 Calcium 9.2 mg/dl (8.5-10.1) 07/17/18 06:43 0.6 mg/dl (0.2-1) 07/14/18 21:03 AST 23 U/L (15-37) 07/14/18 21:03 ALT 22 U/L (12-78) 07/14/18 21:03 85 U/L (45-117) 07/14/18 21:03 7.6 gm/dl (6.4-8.2) 07/14/18 21:03 3.9 gm/dl (3.4-5.0) 07/14/18 21:03 3.7 gm/dl (2.5-4.0) 07/14/18 21:03 1.1 (0.9-2) 07/14/18 21:03 25-OH Vitamin D Total 32.9 ng/ml (30-100) 07/14/18 21:03 Negative (Negative) 07/14/18 23:29 Hepatitis C Ab Screen Neg (Neg) 07/14/18 21:03 Blood Type A Positive 07/14/18 21:03 Antibody Screen NEGATIVE 07/14/18 21:03
--- NOTE | 2018-07-17 15:25 | Hospitalist Progress Note ---
Date of Service July 17, 2018 Assessment & Plan (1) Subcapital fracture of right hip: - Following mechanical fall. - S/p internal fixation right hip with pinning, POD#2. - Pain control per primary team. - DVT ppx with Lovenox. - Discharge with home health today. (2) Hypothyroid: - Continue home Levothyroxine 75 mcg daily. (3) DVT prophylaxis: - Lovenox subQ. Dispo: Pt. is medically stable, will sign off. Supervising Physician Co-Signing Physician Notes Attending Attestation - Chart reviewed, care plan d/w TIFFANIE Seals. I agree w/ the trevino components of her documentation. s/p right hip fracture with ORIF. Vitals/labs stable. No major medical issues except hypothyroidism. Ji Torres MD Subjective Pt. is doing well. Denies significant pain. Review of Systems Review of Systems: All systems reviewed & are unremarkable except as noted in HPI & below Constitutional: no fever, no chills, no fatigue, no weakness and no anorexia Respiratory: no cough, no dyspnea, no dyspnea on exertion and no wheezing Cardiovascular: no chest pain, no palpitations, no lightheadedness, no syncope and no edema Gastrointestinal: no abdominal pain, no nausea, no vomiting and no constipation Genitourinary: no difficulty urinating Musculoskeletal: no back pain and no joint pain Integumentary: no non-healing lesions Allergy / Immunological: no rash Physical Exam Physical Exam: General: Resting comfortably in no apparent distress HEENT: NC/AT; PERRLA with EOMI; [place] conjunctiva, MMM. No erythema of posterior pharynx Neck: Supple and nontender Cardiac: RRR w/o murmurs, gallops or rubs Lungs: CTA bilaterally; No rhonchi, wheezing, or rales Abdomen: Bowel normoactive X 4; Nontender to palpation Extremities: Warm. No edema present Neuro: No focal weakness Skin: No rash Results & Data Vital Signs (Past 12 Hours) Vital Signs Temp Pulse Resp BP BP Pulse Ox 07/17/18 15:19 37.0 C 63 16 120/78 98 07/17/18 13:12 36.9 C 60 16 117/75 114/75 94 07/17/18 06:24 36.9 C 60 16 114/75 94 Laboratory Results 07/17/18 07/17/18 Range/Units 06:43 06:43 WBC 6.99 (4.8-10.8) K/uL RBC 4.30 (4.2-5.4) M/uL Hgb 13.1 (12.0-16.0) g/dL Hct 37.8 (37-47) % MCV 87.9 (80-100) fL MCH 30.5 (25-34) pg MCHC 34.7 (32-36) g/dL RDW Std Deviation 39.4 (36.4-46.3) fL RDW Coeff of Joe 12.3 (11.5-14.5) % Plt Count 148 (130-400) K/uL MPV 8.9 (7.4-10.4) fL Immature Gran % (Auto) 0.3 % Neut % (Auto) 68.9 % Lymph % (Auto) 20.9 % [place] % (Auto) 7.6 % Eos % (Auto) 2.0 % Baso % (Auto) 0.3 % Immature Gran # (Auto) 0.02 (0.00-0.02) K/uL Neut # (Auto) 4.82 (1.4-6.5) K/uL Lymph # (Auto) 1.46 (1.2-3.4) K/uL [place] # (Auto) 0.53 (0.11-0.59) K/uL Eos # (Auto) 0.14 (0-0.5) K/uL Baso # (Auto) 0.02 (0-0.2) K/uL Sodium 139 (136-145) mmol/L Potassium 4.1 (3.5-5.1) mmol/L Chloride 106 (98-107) mmol/L Carbon Dioxide 25 (21-32) mmol/L Anion Gap 7.0 (3-11) BUN 8 (7-18) mg/dl Creatinine 0.66 (0.6-1.2) mg/dl Est Cr Clr Drug Dosing 99.7 ml/min Est GFR ( Amer) 112.9 Est GFR (Non-Af Amer) 97.4 BUN/Creatinine Ratio 12.8 (10-20) Glucose 95 (70-99) mg/dl Calcium 9.2 (8.5-10.1) mg/dl
--- NOTE | 2018-07-22 11:37 | Discharge Summary ---
Date of Service July 22, 2018 Admission HPI Per Admitting Provider Patient is a 58-year-old white female who states that while she was walking her dogs yesterday she was turning to go one direction and the dogs leash was wrapped around her legs causing her to lose her balance. She fell into the grass onto her right side and had immediate pain in her right hip she had difficulty with ambulating. She denies hitting her head and denies loss of consciousness. She has no history of having any shortness of breath chest pain or lightheadedness prior to or after the fall. She came to the emergency room here at [facility] and was seen by the staff. X-rays were taken and was found that she had an impacted subcapital hip fracture of the right hip. Dr Dyson was notified and had the patient admitted for further orthopedic care. Principal Diagnosis Right hip percutaneous pinning Discharge Exam RLE NVSI +EHL/FHL/TA/GS SILT grossly, +2 DP pulse, compartments soft NT, dressing cdi. Constitutional WD/WN, vitals as above Discharge Data Allergies Allergy/AdvReac Type Severity Reaction Status Date / Time No Known Allergies Allergy Verified 07/14/18 18:35 Consultations 07/14/18 19:42 ED Decision to Admit Stat 07/14/18 20:27 Consult Anesthesiology Routine Consult Case Management - Discharge Planning Routine 07/14/18 23:05 Consult Hospitalist Routine 07/15/18 14:05 Consult Case Management - Discharge Planning Routine Procedures Performed Operation Date: 07/15/18 11:00 Actual Procedures p Percutaneous Pinning Right Femur Fracture(Right) - Earl Vitale DO Operation Date: 07/15/18 12:00 <No data on this case meets the specified criteria> Ordered Studies 07/15/18 FL fluoroscopy <1hr Routine FL hip RT 2-3V Routine Hospital Course (1) Subcapital fracture of right hip: The patient is a 58 -year-old female who presents with right nondisplaced subcapital femoral neck fracture. She was subsequently admitted on 07/14/18 for further inpatient treatment. Consultation placed to medical hospitalist for surgical clearance. I indicated the patient for a percutaneous pinning of the right hip vs AGUSTIN, the risks, benefits and complications of the procedure include but not limited to infection, bleeding, damage to bone, nerves, vessels, surrounding soft tissue, may develop blood clots, loss of function, leg length discrepancy, dislocation, failure of the components, AVN, malunion, nonunion, loosening of the components, the need for additional surgery and . The patient wished to proceed with surgery at this time and informed consent was obtained. Hospital Course: On 07/15/18 the patient was taken to the operating room, adequate anesthesia administered and underwent right hip percutaneous pinning. The patient tolerated the procedure well and was taken to the PACU in stable condition. Post-operatively the patient was started on a DVT ppx medication and given appropriate IV antibiotics. Consults were placed to physical therapy, occupational therapy and case management. On POD#1, the patient did well overnight and their pain was well controlled. Labs were drawn and the Hgb was 11.9. The patient progressed well with PT. On POD#2, the patient continued to progress with PT. Labs were drawn and hgb was 13.1. Dressings were changed at this time and the incision was clean, dry and intact. The patients hospital stay was relatively uneventful and they were deemed stable by the orthopedic team and consultants to be discharged home with on 07/17/18. Discharge Instructions: Upon discharge the patient may weight bear toe touch through their operative extremity. They were instructed to keep the incision clean and dry at all times. The patient may shower but should not submerge the incision, avoid bathing, pools and hot tubes. The patient was given a script for pain medication and should take as instructed. The patient was given a script for DVT ppx Lovenox 40mg daily and should take as directed. The patient was instructed to not drive or travel for long distances until cleared to do so. If the patient develops any symptoms of fevers, chills, nausea, vomiting, increased redness, swelling, pain or drainage from the surgical site, they should notify the office and/or proceed to the nearest emergency room. The patient should follow up in 10-14 days after surgery for their routine post-operative follow-up appointment and should call the office to confirm the date and time. POD 2 Status post internal fixation right hip with percutaneous pinning -Ancef x24, then dc -DVT prophylaxis: SCDs, teds, Lovenox daily x4 weeks -Toe-touch weightbearing right lower extremity -PT/OT -A.m. labs as above -DC planning - currently planning for services unless [facility]. Total Time Total Time Spent Total Time Spent (In Minutes): >60 minutes Total Time Includes: Examination of the Patient, Discharge Planning, Medication Reconciliation and Communication With Other Providers Discharge Plan Discharge Items Patient Disposition: Home - Home Health Services Reason For Visit: HIP FRACTURE Discharge Diagnosis: Right Impacted Subcapital Hip Fracture Condition: Good Discharge Goals: Decrease discomfort and Improve function Activity: Per 'Additional Instructions' section Bathing: May shower/bathe in 3 days Bathing Comment: with the dressing off. Do not soak the wound. No tub baths. Weightbearing: Right toe touch Weightbearing Comment: with walker or crutches Non-emergency contact: Surgeon Call non-emergency contact if: your pain is not controlled, your temperature is above 101.5, your wound has increased redness and your wound has increased drainage Follow-up/Referrals: Cesar Wynne III, CRNP [Primary Care Provider] - Diet: Regular Addtl Provider Instructions: [facility] DISCHARGE INSTRUCTIONS: HIP FRACTURE SELF CARE INSTRUCTIONS: A. You are to ambulate with a walker or crutches for approximately 6 weeks. B. You are TOE TOUCH WEIGHT BEARING on your operative lower extremity for at least 6 weeks. C. Wear low heeled shoes with non-slip soles D. Be sure that your floors are free of things that could trip you throw rugs, electrical cords, and small objects. Avoid wet and waxed floors, especially with crutches/walker/cane. E. Try to walk several times a day with rest periods between. F. You may shower 72 hours after surgery and get the incision area wet, but DO NOT soak or submerge incision area in water. (No baths, swimming pools, hot tubs) G. Change your dressing daily for one week, Change it every other day thereafter until seen for your return appointment. You CAN shower with this on. If incision is leaking through the dressing, please call the office . H. Do NOT apply soap or any ointment/lotions directly over incision. I. You may use ice as needed to operative site. SPECIAL CARE INSTRUCTIONS: VERY IMPORTANT TO READ AND REVIEW A. You may be at risk for phlebitis or blood clots. a. Wear surgical stockings (TAMRA hose) for 2 weeks after surgery to improve circulation and reduce swelling. b. Take LOVENOX 40mg SQ daily for 4 weeks or as directed. This is your blood thinner. B. There are a few signs you need to watch for after you are home. Call [facility] at [phone] if you experience any of the following: a. If you have a temperature of 101 degrees or higher. b. Sudden increase in pain in your hip not relieved by rest or pain medication. c. Any fluid or drainage from the incision; redness of the incision. d. Shortness of breath or chest pain. C. Call your physician if: a. Temperature is greater than 101 degrees (F). b. Pain is not relieved by prescribed pain medications. c. Increase drainage or redness from incision. d. Unanswered questions or concerns. D. Pain Medication: a. You will be prescribed pain medication upon discharge that should last till your first post-operative appointment. b. If you experience nausea and/or skin rash, disco ntinue this medication and contact our office for an alternative medication. c. Caution- narcotic pain medication can cause constipation. FOLLOW UP VISIT: Please call [facility] at [phone] to schedule a follow up appointment 10-14 days from the date of your surgery date. Prescriptions: New enoxaparin 40 mg/0.4 mL Syringe 40 mg subcut Q24H 28 Days Qty: 11.2 RF: 0 oxycodone 5 mg Tablet 5 mg PO Q4H PRN (Reason: pain) Qty: 18 RF: 0 Senna-Extra 17.2 mg tablet 17.2 mg PO DAILY PRN (Reason: constipation) Qty: 10 RF: 0 Continued LEVOTHYROXINE SODIUM 75 MCG tablet 75 mcg PO DAILY Qty: 0 RF: 0 Stand-Alone Forms: [employer] Opioid Pain Management [employer]/Other Patient Handouts: Enoxaparin Sodium Porcine Solution for injection, Surgery Prevent DVT After Discharge Orders: Discharge Order (Routine); Ordered 07/17/18 Ordered By: Godfrey Gardner Admission Data Admit Date/Time: 07/14/18 20:36 Attending Provider: Edy Dyson Admit Provider: Edy Dyson Primary Care Provider: Cesar Wynne III Other Providers: Edy Dyson Service: Surgical Services Other Interventions: Discharge Summary Assessment (RN) Last Done: 07/17/18 13:12 DC Date/Time DO NOT enter until pt leaves facility: 07/17/18 19:04
== END 2018-07-17 19:04 | disposition home health service (06) | DRG 482 ==
LOC: ED 17:20 → 3E 20:36
DX: E03.9 Hypothyroidism, unspecified; W19.XXXA Unspecified fall, initial encounter; S72.011A Unspecified intracapsular fracture of right femur, initial encounter for closed fracture